=== PATIENT | male | born 1975 | race Two or more races ===

== ENCOUNTER 2024-05-07 22:36 | Emergency (ER) | payer MEDICAID, OTHER ==
[~2024-05-07] VITALS: Ht 175.3 cm; Wt 77.3 kg
[2024-05-07 23:16] LABS: Urine Bacteria None Seen /hpf (None Seen)
[2024-05-07 23:21] LABS: Urine Blood Negative /uL (Negative); Urine Clarity Clear (Clear); Urine Color Yellow (Yellow); Urine Protein, UAD Negative (Negative); Urine Specific Gravity 1.014 (1.001-1.035); Urine Urobilinogen Normal (Negative); Urine WBC 1 /hpf (0 - 3)
[2024-05-07 23:32] LABS: Basophils # (auto) 0 10 ^3/uL (0-0.2); Basophils % (auto) 0.5 % (0.0-2.0); Eosinophils # (auto) 0 10 ^3/uL (0-0.8); Eosinophils % (auto) 0.4 % (0.0-7.0); Hematocrit 33.9 % (41.0-53.0); Hemoglobin 11.9 g/dL (13.5-17.5); Lymphocytes # (auto) 1.8 10 ^3/uL (0.4-5.4); Lymphocytes % (auto) 21.3 % (10.0-50.0); Mean Corpuscular Hemoglobin 31.8 pg (28.0-32.0); Mean Corpuscular Hgb Conc. 35.1 g/dL (32.0-36.0); Mean Corpuscular Volume 90.5 fL (80.0-100.0); Monocytes # (auto) 0.6 10 ^3/uL (0-1.3); Monocytes % (auto) 6.9 % (0.0-12.0); Neutrophils % (auto) 70.9 % (37.0-80.0); Platelet Count (auto) 184 10^3/uL (140-450); Red Blood Cells 3.75 10^6/uL (4.5-5.90); Red Cell Distribution Width 14.1 % (11.8-14.3); White Blood Cell 8.5 10^3/uL (4.4-10.8)
[2024-05-07 23:39] LABS: Amphetamine Screen, Urine Neg (NEGATIVE); Barbiturate Scree,Urine Neg (NEGATIVE); Benzodiazephine Screen, Urine Neg (NEGATIVE); Cocaine Screen, Urine Neg (NEGATIVE)
[2024-05-07 23:40] LABS: Cannabinoid Screen, Urine Neg (NEGATIVE); Opiate Scree,Urine Neg (NEGATIVE); Phencyclidine Screen, Urine Neg (NEGATIVE)
[2024-05-07 23:41] LABS: Chloride 104 mmol/L (98-107); Potassium 3.5 mmol/L (3.5-5.1); Sodium 135 mmol/L (136-145)
[2024-05-07 23:42] LABS: Anion Gap 8 (5-15); Calcium 9.2 mg/dL (8.7-10.4); Carbon Dioxide 23 mmol/L (20-30)
[2024-05-07 23:47] LABS: BUN/Creatinine Ratio 10.9 (10.0-20.0); Blood Urea Nitrogen 21 mg/dL (9-23); Glucose 125 mg/dL (74-106)
[2024-05-07 23:56] LABS: Salicylate < 3.0 mg/dL (2.8-20.0)
[2024-05-08 16:58] VITALS: BP 111/74; PULSE 64; RESP 16; TEMP 97.9; O2SAT 97
== END 2024-05-08 17:32 | disposition home or self-care (01) ==
LOC: ER 22:36 → EDBD 22:36 → ER 05-08 17:32
DX: F31.9 Bipolar disorder, unspecified (principal); M84.375A Stress fracture, left foot, initial encounter for fracture; R45.851 Suicidal ideations; F20.9 Schizophrenia, unspecified; F17.210 Nicotine dependence, cigarettes, uncomplicated; Z79.899 Other long term (current) drug therapy; X58.XXXA Exposure to other specified factors, initial encounter; Y93.89 Activity, other specified; Y92.89 Other specified places as the place of occurrence of the external cause; Y99.8 Other external cause status
CPT/HCPCS: 36415; 73590; 73630; 80048; 80307; 80320; 80329; 81001; 85025